=== PATIENT | male | born 1970 | race Caucasian/White ===

== ENCOUNTER 2016-07-26 09:09 | Emergency (ER) | payer MEDICAID ==
[~2016-07-26] VITALS: Ht 160 cm; Wt 84.4 kg
[~2016-07-26 09:09] MED LIST: IBUP-2213 PO
[2016-07-26 09:20] VITALS: BP 127/77
--- NOTE | 2016-07-26 09:35 | NUR ---
A45/M C/O HEMATURIA TODAY WITH BURING PAIN UPON VOIDING& WITH LOWER BACK PAIN X 5DAYS. DENIES RECENT TRAUMA DENIES N/V/D; SKIN IS PINK/WARM/DRY; AAOX4 WITH EVEN AND STEADY GAIT; LUNGS CLEAR BL; HR EVEN AND REGULAR; PT DENIES ANY FEVER, CP, SOB, OR COUGH AT THIS TIME; PATIENT STATES PAIN OF 5/10 AT THIS TIME; VSS; PATIENT POSITIONED FOR COMFORT; HOB ELEVATED; BEDRAILS UP X2; BED DOWN. ER MD MADE AWARE OF PT STATUS.
--- NOTE | 2016-07-26 11:07 | NUR ---
ER MD DR ALEXANDRA EVALUATING PT AT BEDSIDE
[2016-07-26 11:41] LABS: BASOPHILS # (AUTO) 0.1 K/uL (0.00-0.22); EOSINOPHILS # (AUTO) 0.2 K/uL (0-0.4); EOSINOPHILS % (AUTO) 2.2 % (0.0-4.0); HEMATOCRIT 42.3 % (36-52); HEMOGLOBIN 14.5 g/dL (12.0-18.0); LYMPHOCYTES # (AUTO) 2.2 K/uL (2.0-11.5); LYMPHOCYTES % (AUTO) 31.2 % (20.5-51.1); MEAN CORPUSCULAR HEMOGLOBIN 29 pg (27-31); MEAN CORPUSCULAR HGB CONC 34 g/dL (33-37); MEAN CORPUSCULAR VOLUME 84 fL (80-94); MONOCYTES # (AUTO) 0.7 K/uL (0.8-1.0); MONOCYTES % (AUTO) 9.7 % (1.7-9.3); NEUTROPHILS # (AUTO) 3.8 K/uL (1.8-7.7); NEUTROPHILS % (AUTO) 55.9 % (42.2-75.2); PLATELET COUNT (AUTO) 210 K/uL (140-450); RED BLOOD CELL COUNT(AUTO) 5.06 MIL/uL (4.20-6.10); RED CELL DISTRIBUTION WIDTH 13.3 % (11.6-13.7)
[2016-07-26 11:57] LABS: ALBUMIN 3.8 g/dL (3.4-5.0); CALCIUM 8.6 mg/dL (8.5-10.1); CARBON DIOXIDE 26.9 mmol/L (21-32); CREATININE 0.8 mg/dL (0.6-1.3); POTASSIUM 3.9 mmol/L (3.5-5.1); TOTAL BILIRUBIN 0.4 mg/dL (0.0-1.0); TOTAL PROTEIN, SERUM 7.2 g/dL (6.4-8.2)
--- NOTE | 2016-07-26 13:12 | NUR ---
Patient discharged with v/s stable. Written and verbal after care instructions given and explained. Patient alert, oriented and verbalized understanding of instructions. Ambulatory with steady gait. All questions addressed prior to discharge. ID band removed. Patient advised to follow up with PMD. Rx of FLOMAX 0.4MG CAPSULE given. Patient educated on indication of medication including possible reaction and side effects. Opportunity to ask questions provided and answered.
[2016-07-26 13:13] VITALS: BP 121/71
== END 2016-07-26 13:12 | disposition home or self-care (01) ==
LOC: MED 09:09
DX: N21.0 Calculus in bladder (principal)
CPT/HCPCS: 36415; 80053; 81002; 85025; 99285

== ENCOUNTER 2016-12-18 18:00 | Emergency (ER) | payer SELFPAY ==
[~2016-12-18] VITALS: Ht 160 cm; Wt 87.1 kg
[2016-12-18 18:09] VITALS: BP 185/90
--- NOTE | 2016-12-18 18:09 | NUR ---
Patient ambulated to bed 11.
--- NOTE | 2016-12-18 18:10 | NUR ---
46/M BIB SELF C/O MOUTH PAIN RADIATING TO LEFT NECK X TODAY.DENIES N/V/D; SKIN IS PINK/WARM/DRY; AAOX4 WITH EVEN AND STEADY GAIT; LUNGS CLEAR BL; PT DENIES ANY FEVER, CP, SOB, OR COUGH AT THIS TIME; PATIENT STATES PAIN OF 5/10 AT THIS TIME; PATIENT POSITIONED FOR COMFORT; HOB ELEVATED; BEDRAILS UP X2; BED DOWN. ER MADE AWARE OF PT STATUS. Addendum: 12/18/16 at 1850 by MED1 PT CAN'T MOVE LEFT LIP WHEN SMILING.
--- NOTE | 2016-12-18 19:04 | NUR ---
Pt report given to GOLDY GARDNER. Transfer of care at this time.
--- NOTE | 2016-12-18 19:34 | NUR ---
Dr. Amezquita evaluating patient at bedside.
[2016-12-18] MEDS ORDERED: methylPREDNISolone SS 125 MG/2 ML VIAL IM ONE (19:40)
--- NOTE | 2016-12-18 19:50 | NUR ---
MEDICATED PER [facility] ORDER, PATIENT TOLERATED WELL.
[2016-12-18 20:10] VITALS: BP 123/83
--- NOTE | 2016-12-18 20:10 | NUR ---
Patient discharged with v/s stable. Written and verbal after care instructions given and explained. Patient alert, oriented and verbalized understanding of instructions. Ambulatory with steady gait. All questions addressed prior to discharge. ID band removed. Patient advised to follow up with PMD OR RETURN BACK TO ER IF CONDITION WORSENS. Rx of ACYCLOVIR AND PREDNISONE given. Patient educated on indication of medication including possible reaction and side effects. Opportunity to ask questions provided and answered.
== END 2016-12-18 20:10 | disposition home or self-care (01) ==
LOC: MED 18:00
DX: G51.0 Bell's palsy (principal)
CPT/HCPCS: 81002; 96372; 99283; J2930